=== PATIENT | male | born 1935 | race Caucasian/White ===

== ENCOUNTER 2021-11-25 20:50 | Emergency (ER) | payer BC, MEDICARE ==
[~2021-11-25] VITALS: Ht 165.1 cm; Wt 80.7 kg
[2021-11-25 22:16] LABS: BASOPHILS % (AUTO) 0.5 % (0.0-2.0); EOSINOPHILS % (AUTO) 2.5 % (0.0-6.0); HEMATOCRIT 27 % (39-51); HEMOGLOBIN 7.5 g/dL (13.5-17.5); LYMPHOCYTES % (AUTO) 14.7 % (20.0-44.0); MEAN CORPUSCULAR HGB CONC 28 g/dl (31.0-36.0); MEAN CORPUSCULAR VOLUME 79 fL (80-96); MONOCYTES # (AUTO) 0.6 K/uL (0.1-1.30); MONOCYTES % (AUTO) 8.4 % (2.0-12.0); NEUTROPHILS % (AUTO) 73.9 % (43.0-81.0); PLATELET COUNT (AUTO) 221 K/uL (150-450); RED BLOOD CELL COUNT(AUTO) 3.35 MIL/uL (4.5-6.0); WHITE BLOOD COUNT (AUTO) 6.8 K/uL (4.3-11.0)
[2021-11-25 22:23] LABS: BILIRUBIN,URINE NEGATIVE (NEGATIVE); COLOR,URINE YELLOW (YELLOW); LEUKOCYTE ESTERASE ,URINE NEGATIVE (NEGATIVE); NITRITE, URINE NEGATIVE (NEGATIVE); PROTEIN,URINE TRACE mg/dl (NEGATIVE); UGLUCOSE >=1000 mg/dL (NEGATIVE)
[2021-11-25 23:03] LABS: CALCIUM, SERUM 8.4 mg/dL (8.5-10.1); CARBON DIOXIDE 24 mmol/L (21-32); CHLORIDE 108 mmol/L (98-107); CREATININE 1.4 mg/dL (0.6-1.3); GLUCOSE 108 mg/dL (74-106); POTASSIUM 4.2 mmol/L (3.5-5.1); SODIUM SERUM 141 mmol/L (136-145); UREA NITROGEN, BLOOD 25 mg/dL (7-18)
[2021-11-25 23:08] LABS: ALANINE AMINOTRANSFERASE 20 U/L (12-78); ALBUMIN 3.3 g/dL (3.4-5.0); ALKALINE PHOSPHATASE 80 U/L (46-116); ASPARTATE AMINOTRANSFERASE 20 U/L (15-37); BILIRUBIN,DIRECT 0.2 mg/dL (0.0-0.2); BILIRUBIN,TOTAL 0.5 mg/dL (0.2-1.0); LIPASE 78 U/L (73-393); TOTAL PROTEIN, SERUM 7.1 g/dL (6.4-8.2)
[2021-11-25] MEDS ORDERED: SENN1TAB6 PO (23:47)
--- NOTE | 2021-11-26 00:02 | NUR ---
Patient discharged to home in stable condition. Written and verbal after care instructions given. Patient verbalizes understanding of instruction. pt ambulatory with a steady gait
[2021-11-26 00:05] VITALS: BP 125/65
== END 2021-11-26 00:06 | disposition home or self-care (01) ==
LOC: ER 20:54
DX: K59.00 Constipation, unspecified (principal); D64.9 Anemia, unspecified; Z79.899 Other long term (current) drug therapy
CPT/HCPCS: 36415; 80048-TC; 80076-TC; 83690-TC; 85025-TC

== ENCOUNTER 2021-12-23 20:42 | Emergency (ER) | payer BC ==
[~2021-12-23] VITALS: Ht 165.1 cm; Wt 77.1 kg
[~2021-12-23 20:42] MED LIST: SENN1TAB6 PO
--- NOTE | 2021-12-23 23:12 | NUR ---
BIBSELF FROM HOME C/O CONSTIPATION X5 DAYS. RANGE MOUNTER TOOK LAXATIVE THIS MORNING. AMBULATORY, PLACED ON BED, AAOX4, BREATHING EVEN AND UNLABORED
[2021-12-23] MEDS ORDERED: IV NS 0.9% 1,000 ML BAG IV ONE (23:30)
[2021-12-23] MEDS ORDERED: PEG 3350/NA SULF,BICARB,CL/KCL 4,000 ML BOTTLE PO ONE (23:30)
--- NOTE | 2021-12-23 23:41 | NUR ---
BLOOD DRAWN AND SENT TO LAB
--- NOTE | 2021-12-23 23:55 | NUR ---
PT RETURNED TO ER BED [address]
[2021-12-23 23:58] LABS: BASOPHILS % (AUTO) 0.5 % (0.0-2.0); EOSINOPHILS % (AUTO) 3.3 % (0.0-6.0); HEMATOCRIT 27 % (39-51); LYMPHOCYTES # (AUTO) 1.8 K/uL (0.8-4.8); LYMPHOCYTES % (AUTO) 22.2 % (20.0-44.0); MEAN CORPUSCULAR HGB CONC 30 g/dl (31.0-36.0); MEAN CORPUSCULAR VOLUME 69 fL (80-96); MONOCYTES # (AUTO) 0.7 K/uL (0.1-1.30); MONOCYTES % (AUTO) 8.6 % (2.0-12.0); NEUTROPHILS # (AUTO) 5.3 K/uL (1.8-8.9); NEUTROPHILS % (AUTO) 65.4 % (43.0-81.0); PLATELET COUNT (AUTO) 275 K/uL (150-450); RED BLOOD CELL COUNT(AUTO) 3.87 MIL/uL (4.5-6.0); WHITE BLOOD COUNT (AUTO) 8.1 K/uL (4.3-11.0)
[2021-12-24 00:11] LABS: CALCIUM, SERUM 9.4 mg/dL (8.5-10.1); CARBON DIOXIDE 37 mmol/L (21-32); CHLORIDE 101 mmol/L (98-107); CREATININE 1.9 mg/dL (0.6-1.3); GLUCOSE 101 mg/dL (74-106); POTASSIUM 3.8 mmol/L (3.5-5.1); SODIUM SERUM 141 mmol/L (136-145); UREA NITROGEN, BLOOD 34 mg/dL (7-18)
[2021-12-24 00:17] LABS: ALANINE AMINOTRANSFERASE 10 U/L (12-78); ALBUMIN 3.5 g/dL (3.4-5.0); ALKALINE PHOSPHATASE 60 U/L (46-116); ASPARTATE AMINOTRANSFERASE 15 U/L (15-37); BILIRUBIN,DIRECT 0.1 mg/dL (0.0-0.2); BILIRUBIN,TOTAL 0.3 mg/dL (0.2-1.0); LIPASE 180 U/L (73-393); TOTAL PROTEIN, SERUM 7.7 g/dL (6.4-8.2)
[2021-12-24] MEDS ORDERED: MINERAL OIL 133 ML (PYXIS) 1 EA ENEMA RC ONE ×2 (00:30→00:53)
[2021-12-24] MEDS ORDERED: PEG 3350/NA SULF,BICARB,CL/KCL 4,000 ML BOTTLE ONE (01:15)
[2021-12-24 03:32] VITALS: BP 115/63
--- NOTE | 2021-12-24 03:32 | NUR ---
IV CANNULA REMOVED
--- NOTE | 2021-12-24 03:32 | NUR ---
Patient discharged to home in stable condition. Written and verbal after care instructions given. Patient verbalizes understanding of instruction.
== END 2021-12-24 03:33 | disposition home or self-care (01) ==
LOC: ER 20:43
DX: K59.00 Constipation, unspecified (principal); I10 Essential (primary) hypertension; E78.00 Pure hypercholesterolemia, unspecified; Z60.2 Problems related to living alone; Z79.899 Other long term (current) drug therapy
CPT/HCPCS: 99284; 74176; 96360; 85025; 80048; 83690; 80076; 36415; J7030

== ENCOUNTER 2022-01-22 20:07 | Emergency (ER) | payer BC ==
[~2022-01-22] VITALS: Ht 165.1 cm; Wt 79.4 kg
[2022-01-22 20:30] VITALS: BP 111/58
--- NOTE | 2022-01-22 20:30 | NUR ---
BIBS FROM HOME FOR CONSTIPATION. LBM: 2 DAYS AGO. AMBULATORY, PLACED ON BED.
[2022-01-22] MEDS ORDERED: POLYETHYLENE GLYCOL 3350 17 GM POWD.PACK PO ONE (21:30)
[2022-01-22] MEDS ORDERED: MAGNESIUM HYDROXIDE 30 ML UDC PO ONE (21:30)
[2022-01-22] MEDS ORDERED: MAGNESIUM HYDROXIDE 30 ML UDC ONE (21:34)
[2022-01-22] MEDS ORDERED: NA PHOS,M-B/NA PHOS,DI-BA 1 EA ENEMA RC ONE ×2 (23:15→23:30)
--- NOTE | 2022-01-22 23:48 | NUR ---
PT NOTED TO HAVE LARGE BM AND REPORTS IMPROVEMENT OF SYMPTOMS. MD MADE AWARE
--- NOTE | 2022-01-23 00:03 | NUR ---
Patient discharged to home in stable condition. Written and verbal after care instructions given. Patient verbalizes understanding of instruction.
== END 2022-01-23 00:05 | disposition home or self-care (01) ==
LOC: ER 20:11
DX: K59.00 Constipation, unspecified (principal); I10 Essential (primary) hypertension; E78.00 Pure hypercholesterolemia, unspecified; Z79.899 Other long term (current) drug therapy